=== PATIENT | female | born 1965 | race Caucasian/White ===

== ENCOUNTER 2024-08-26 14:10 | Emergency (ER) | payer BC ==
[~2024-08-26] VITALS: Ht 162.6 cm; Wt 77.3 kg
[2024-08-26 14:42] LABS: BILIRUBIN,URINE NEGATIVE (Neg); CLARITY,URINE CLEAR (Clear); COLOR,URINE YELLOW (Yellow); GLUCOSE, URINE NEGATIVE (Neg); KETONES,URINE NEGATIVE (Neg); LEUKOCYTE ESTERASE ,URINE SMALL (Neg); NITRITES, URINE NEGATIVE (Neg); OCCULT BLOOD,URINE NEGATIVE (Neg); PROTEIN,URINE TRACE mg/dl (Neg); UROBILINOGEN,URINE 0.2 E.U/dL (0.2-1.0)
[2024-08-26 14:51] LABS: UA COLLECTION TYPE CLN CATCH MIDSTREAM
[2024-08-26 14:58] LABS: SQUAMOUS EPITHELIAL CELL,UR FEW /LPF (FEW)
[2024-08-26 15:02] LABS: BACTERIA,URINE FEW /HPF (Neg)
[2024-08-26 15:03] LABS: TRIPLE PHOSPHATE CRYST 1+ /HPF (NEGATIVE)
[2024-08-26 15:06] VITALS: BP_DIAS 124
[2024-08-26 15:09] LABS: TRANSITIONAL EPI CELLS,URINE FEW /HPF; WBC CLUMPS,URINE FEW /HPF (NEGATIVE)
[2024-08-26 15:17] LABS: BASOPHILS # (AUTO) 0.1 X10'3 (0-0.2); BASOPHILS % (AUTO) 0.5 % (0-1); EOSINOPHILS # (AUTO) 0.2 X10'3 (0-0.9); EOSINOPHILS % (AUTO) 1.7 % (0-6); HEMATOCRIT 48.3 % (35.0-45.0); LYMPHOCYTES # (AUTO) 1.9 X10'3 (1.1-4.8); LYMPHOCYTES % (AUTO) 18.8 % (21-51); MEAN CORPUSCULAR HEMOGLOBIN 28.5 PG (27.0-31.0); MEAN CORPUSCULAR HGB CONC 33.1 g/dL (33.0-36.5); MEAN CORPUSCULAR VOLUME 86.3 FL (78-98); MONOCYTES # (AUTO) 0.6 X10'3 (0-0.9); MONOCYTES % (AUTO) 6.3 % (2-12); NEUTROPHILS # (AUTO) 7.5 X10'3 (1.8-7.7); NEUTROPHILS % (AUTO) 72.7 % (42-75); PLATELET COUNT 360 X10'3 (140-440); RED BLOOD COUNT 5.59 X10'6 (4.20-5.60); RED CELL DISTRIBUTION WIDTH 14.1 % (11.5-14.5); WHITE BLOOD COUNT 10.3 X10'3 (4.5-11.0)
[2024-08-26 15:34] LABS: ALBUMIN 3.9 G/DL (3.4-5.0); ANION GAP 8 (8-16); ASPARTATE AMINO TRANSFERASE 15 U/L (10-37); BILIRUBIN,TOTAL 0.3 MG/DL (0.1-1.0); BLOOD UREA NITROGEN 15 MG/DL (7-18); BUN/CREATININE RATIO 16.3 (10.0-20.0); CALCIUM 9.3 MG/DL (8.5-10.1); CHLORIDE 105 MMOL/L (99-107); CREATININE 0.92 MG/DL (0.40-0.90); GLUCOSE 115 MG/DL (70-104); POTASSIUM 3.2 MMOL/L (3.5-5.1); SODIUM 143 MMOL/L (135-145); TOTAL CARBON DIOXIDE 29.7 MMOL/L (24-32); TOTAL PROTEIN 7.8 G/DL (6.4-8.2); eCRCL 55 ML/MIN; eGFR 62 ML/MIN
[2024-08-26 15:35] LABS: ALANINE AMINOTRANSFERASE 24 U/L (12-78); ALKALINE PHOSPHATASE 104 IU/L (46-116); LIPASE 34 U/L (16-77)
[2024-08-26] MEDS: CefTRIAXone/D5W-Rocephin 1gm 50 ML IV SCH (17:04)
[2024-08-26] MEDS: normal saline 1000ML IV soln IVB ONE ×2 (17:04)
[2024-08-26] MEDS: proCHLORperazine 10 MG/2 ml inj IV ONE (17:05)
[2024-08-26 17:25] LABS: MAGNESIUM 2.3 MG/DL (1.5-2.4)
[2024-08-26] MEDS ORDERED: NITR100C6 PO (18:16)
[2024-08-26] MEDS: potassium Cl 20 mEq SR tablet PO ONE (19:27)
[2024-08-26] MEDS ORDERED: AMLO2.5T2 PO (19:35)
[2024-08-26] MEDS: amLODIPine 5mg tablet PO ONE (19:38)
[2024-08-26 19:51] VITALS: BP_SYST 194; PULSE 97; RESP 14; TEMP 97.3; O2SAT 96
[2024-08-27] MEDS ORDERED: CefTRIAXone/D5W-Rocephin 1gm 50 ML IV SCH (08:00)
== END 2024-08-26 19:53 | disposition home or self-care (01) ==
LOC: ER 14:11
DX: N39.0 Urinary tract infection, site not specified (principal); R10.84 Generalized abdominal pain; G43.909 Migraine, unspecified, not intractable, without status migrainosus; Z79.899 Other long term (current) drug therapy; Z90.710 Acquired absence of both cervix and uterus; Z90.49 Acquired absence of other specified parts of digestive tract
CPT/HCPCS: 36415; 80053; 81001; 83690; 83735; 84484; 85025; 87088; 93005; 96365; 96366; 96375; 99284; J0696; J0780; J7030; A4615